=== PATIENT | male | born 1935 | race Caucasian/White ===

== ENCOUNTER 2019-01-28 20:27 | Inpatient (IN) | payer MEDICARE, OTHER ==
[2019-01-28] MEDS ORDERED: VITAMIN B-121000 MCG PO (20:40)
[2019-01-28] MEDS ORDERED: CATAPRES0.1 MG PO (20:40)
[2019-01-28] MEDS ORDERED: NORVASC5 MG PO (20:40)
[2019-01-28] MEDS ORDERED: ISOSORBIDE MONO30 M1 PO (20:42)
[2019-01-28] MEDS ORDERED: TOPROL XL25 MG PO (20:43)
[2019-01-28] MEDS ORDERED: MELATONIN 3 MG1 TAB PO (20:43)
[2019-01-28] MEDS ORDERED: PLAVIX75 MG PO (20:44)
[2019-01-28] MEDS ORDERED: SEROQUEL25 MG PO (20:44)
[2019-01-28] MEDS ORDERED: SODIUM BICARBO650 MG PO (20:44)
[2019-01-28] MEDS ORDERED: NITROSTAT0.4 MG SL (20:44)
[2019-01-28] MEDS ORDERED: TUMS X-STR300 MG PO (20:45)
[2019-01-28 21:16] LABS: BASOPHILS 0.1 % (0-2); EOSINOPHILS 0.1 % (0-7); HEMATOCRIT 34.3 % (42.0-54.0); IMMATURE GRANULOCYTES 0.5 % (0-5); LYMPHOCYTES 6.5 % (15-50); MCH 31.8 pg (26.0-34.0); MCHC 32.1 g/dL (31.0-37.0); MCV 99.1 fL (80.0-100.0); MEAN PLATELET VOLUME 11.3 fL (7.4-10.4); MONOCYTES 6.8 % (2-11); RBC 3.46 10x6/uL (4.20-6.10); RDW 15.6 % (11.5-14.5); WBC 9.4 10x3/uL (4.8-10.8)
[2019-01-28 21:18] LABS: PLATELET COUNT 196 10x3/uL (130-400)
[2019-01-28 21:23] LABS: APTT 31.1 SECONDS (22.8-39.4); INR 1.24 (0.85-1.17)
[2019-01-28 21:30] VITALS: BP 108/65
--- NOTE | 2019-01-28 21:35 | NUR ---
PT'S BED LINENS CHANGED AND [facility] PROVIDED NEW CLEAN, DRY BREIF AND GOWN PUT ON PT.
[2019-01-28 21:39] LABS: ALBUMIN 2.8 g/dL (3.4-5.0); ALKALINE PHOSPHATASE 66 U/L (46-116); ALT (SGPT) 23 U/L (10-68); BILIRUBIN - TOTAL 0.47 mg/dL (0.2-1.3); CALCIUM 8.7 mg/dL (8.5-10.1); CARBON DIOXIDE 15.1 mmol/L (21.0-32.0); CHLORIDE - SERUM 112 mmol/L (98-107); CREATININE - SERUM 10.7 mg/dL (0.6-1.3); GLUCOSE 167 mg/dL (74-106); PROTEIN - SERUM 6.8 g/dL (6.4-8.2); SODIUM 143 mmol/L (136-145); eGFR NON AFRICAN AMERICAN 5 mL/min (90-120)
[2019-01-28 21:40] LABS: CALC OSMOLALITY 337 mosm/kg (275-300); UREA NITROGEN 151 mg/dL (7-18)
[2019-01-28 21:44] LABS: CREATINE KINASE 151 UL (21-232)
[2019-01-28 21:48] LABS: TROPONIN-I < 0.017 ng/mL (0.000-0.060)
[2019-01-28 22:00] LABS: APPEARANCE TURBID (CLEAR); BILIRUBIN NEGATIVE (NEGATIVE); COLOR YELLOW (YELLOW); GLUCOSE NEGATIVE (NEGATIVE); KETONE NEGATIVE (NEGATIVE); NITRITE NEGATIVE (NEGATIVE); PROTEIN 1+ mg/dL (NEGATIVE); UROBILINOGEN NORMAL (NORMAL)
[2019-01-28 22:02] LABS: BACTERIA MANY /hpf (NONE SEEN); MUCUS >1+ /lpf (NONE SEEN); RED CELLS - URINE 0-5 /hpf (0-5); WHITE CELLS - URINE >50 /hpf (0-5)
[2019-01-28 22:15] VITALS: BP 109/70
--- NOTE | 2019-01-28 22:32 | NUR ---
PLAN OF CARE DISCUSSED WITH PT'S AT BEDSIDE, VERBALIZES UNDERSTANDING, DENIES ANY COMPLAINTS OR NEEDS AT THIS TIME. PT RESTING IN BED, RR EVEN AND UNLABORED, VSS, NO DISTRESS NOTED. WILL CONTINUE TO MONITOR.
[2019-01-29] MEDS ORDERED: REVATIO20 MG (00:10)
[2019-01-29] MEDS ORDERED: CATAPRES0.1 MG PO (00:12)
[2019-01-29] MEDS ORDERED: MELATONIN 3 MG1 TAB PO (00:14)
[2019-01-29] MEDS ORDERED: TUMS X-STR300 MG PO (00:22)
[2019-01-29] MEDS ORDERED: VITAMIN B-121000 MCG IM (00:26)
[2019-01-29] MEDS ORDERED: LOPRESSOR25 MG PO (00:28)
[2019-01-29 00:30] VITALS: BP 114/60
[2019-01-29 00:34] VITALS: BP 114/60; BMI 21.1
--- NOTE | 2019-01-29 00:58 | NUR ---
RECIEVED REPORT FROM DENISE WOLFE IN ER AT 2311. ARRIVED TO FLOOR ON STRETCHER AT 2319. ASSESSMENT COMPLETED. SPOUSE AT BEDSIDE. POOR HISTORIAN . DOES NOT SPEAK. SPOUSE STATED THAT HE SPOKE EARLIER TODAY. BUT, HAS'NT SPOKE SINCE HE'S BEEN HERE. PT KEEPS EYES CLOSED MOST OF THE TIME. PULLED IV OUT. WILL RESTART. NO S/S OF DISTRESS OBSERVED.
[2019-01-29 04:30] VITALS: BP 98/50
[2019-01-29 05:49] LABS: BASOPHILS 0.1 % (0-2); EOSINOPHILS 0.8 % (0-7); HEMATOCRIT 29.9 % (42.0-54.0); HEMOGLOBIN 9.8 g/dL (13.5-17.5); IMMATURE GRANULOCYTES 0.4 % (0-5); MCH 31.6 pg (26.0-34.0); MCHC 32.8 g/dL (31.0-37.0); MEAN PLATELET VOLUME 11.6 fL (7.4-10.4); MONOCYTES 10.5 % (2-11); NEUTROPHILS 81.2 % (40-80); PLATELET COUNT 166 10x3/uL (130-400); RDW 15.5 % (11.5-14.5); WBC 7.8 10x3/uL (4.8-10.8)
[2019-01-29 05:51] LABS: MCV 96.5 fL (80.0-100.0)
[2019-01-29 06:09] LABS: ALBUMIN 2.4 g/dL (3.4-5.0); BILIRUBIN - TOTAL 0.4 mg/dL (0.2-1.3); CALCIUM 8.5 mg/dL (8.5-10.1); CARBON DIOXIDE 14.8 mmol/L (21.0-32.0); CREATININE - SERUM 10.3 mg/dL (0.6-1.3)
[2019-01-29 06:19] LABS: POTASSIUM - SERUM 4.8 mmol/L (3.5-5.1)
--- NOTE | 2019-01-29 07:25 | NUR ---
PT IS ASLEEP SNORING, AT BEDSIDE. PT DID NOT WAKE I TALKED TO HIS SO I DID NOT FURTHER DISTURB HIM AT THIS TIME. STATES SHE WILL HAVE TO LEAVE SOON TO GO TAKE CARE OF HER DOGS AT HOME. STATES SHE WILL BE BACK IN A WHILE AND WOULD LIKE TO SEE THE DRFlavia TOLD HER I WAS NOT ABLE TO GIVE A GOOD A GUESS AT THIS TIME TO WHEN THEY WOULD ROUND. CL IN REACH, SRX3, BED ALARM OFF AT THIS TIME, WILL TURN BACK ON WHEN LEAVES.
[2019-01-29 09:33] VITALS: BP 99/55
[2019-01-29 11:56] VITALS: BMI 21.1
[2019-01-29 12:12] LABS: % SATURATION 24 % (15-55); IRON 40 ug/dl (35-150); TOTAL IRON BIND CAPACITY 166 ug/dl (260-445); UNSAT IRON BIND CAPACITY 126 ug/dl (150-375)
[2019-01-29 13:00] VITALS: BP 124/66
--- NOTE | 2019-01-29 13:43 | NUR ---
I have reviewed this patient and I concur with the Shift Assessment completed by the Licensed Practical Nurse today this shift.
[2019-01-29 15:30] VITALS: BP 115/60
--- NOTE | 2019-01-29 15:42 | NUR ---
PT CONTINUOUSLY BENDS ARM IN WHICH I/V IS PLACED IN THE AV. PLACED ARM BOARD AND PT AND WRAPPED WITH KERLEX. PULSE PRESENT. WILL CONTINUE TO CHECK. NO
--- NOTE | 2019-01-29 16:31 | NUR ---
PTS IS BACK, SPOKE TO HER ABOUT HER . STATES HE IS A DNR. SHE WOULD LIKE TO SPEAK WITH GABI FROM [facility] TOMORROW. DNR VERRIFIED WITH CIRILO RECIO, SIGNED, DR. ESPINAL TO SIGN TOMORROW.
--- NOTE | 2019-01-29 16:47 | NUR ---
PT REFUSED SCDS
--- NOTE | 2019-01-29 18:27 | NUR ---
PT LING WITH RIGHT SIDE PROPPED UP ON PILLOWS. UROSTOMY/ELMORE IN A DRAINING POSITION. ELMORE EMPTIED (500 OUT). AT BEDSIDE STATES THAT WHEN WE FEED HIM TO PUT THE BITE IN FRONT OF HIS MOUTH AND TELL HIM TO OPEN UP. PASSED THIS ON TO TECH AND TIM PASS TO MAKE UP OPERATOR NURSE. STATES SHE'LL BE STAYING UNTIL ATOUND 1930. STATES THAT SHE WOULD LIKE HIM TO GO BACK TO [facility]. PLANS TO SPEAK TO GABI WITH HOSPICE TOMORROW ABOUT HOW TO ORGINIZE IT ALL. AT THIS TIME, CL IN REACH, SRX2, BED ALARM OFF ( AT BEDSIDE).
--- NOTE | 2019-01-29 18:29 | NUR ---
I have reviewed this patient and I concur with the Shift Assessment completed by the Licensed Practical Nurse today this shift.
--- NOTE | 2019-01-29 19:39 | NUR ---
EVENING ROUNDS COMPLETED. REPORT RECEIVED. PT LYING IN BED WITH EYES CLOSED, RR EVEN AND UNLABORED. BED IN LOW POSITION. NO S/S OF DISTRESS NOTED. MARTIN ALARM TURNED ON. CALL LIGHT IN REACH. WILL CTM.
[2019-01-30 00:30] VITALS: BP 141/69
--- NOTE | 2019-01-30 03:36 | NUR ---
I have reviewed this patient and I concur with the Shift Assessment completed by the Licensed Practical Nurse today this shift.
[2019-01-30 05:18] LABS: BASOPHILS 0.1 % (0-2); HEMATOCRIT 30.1 % (42.0-54.0); HEMOGLOBIN 9.8 g/dL (13.5-17.5); IMMATURE GRANULOCYTES 0.7 % (0-5); MCH 31.5 pg (26.0-34.0); MCHC 32.6 g/dL (31.0-37.0); MCV 96.8 fL (80.0-100.0); MEAN PLATELET VOLUME 10.9 fL (7.4-10.4); MONOCYTES 7.7 % (2-11); NEUTROPHILS 81.5 % (40-80); PLATELET COUNT 163 10x3/uL (130-400); RBC 3.11 10x6/uL (4.20-6.10); RDW 15.1 % (11.5-14.5); WBC 7.4 10x3/uL (4.8-10.8)
[2019-01-30 05:30] VITALS: BP 139/58
[2019-01-30 05:34] LABS: ANION GAP 18.7 mmol/L (8-16); CALCIUM 8.4 mg/dL (8.5-10.1); CARBON DIOXIDE 17.1 mmol/L (21.0-32.0); CREATININE - SERUM 9.3 mg/dL (0.6-1.3); POTASSIUM - SERUM 4.8 mmol/L (3.5-5.1)
--- NOTE | 2019-01-30 07:15 | NUR ---
PT RESTING, AWAKE AND CONFUSED. MUMBLING UNINTELLAGABLE SENTANCES. ARM WRAPPED IN SOFT AADM WRAP, PT STILL BENDING HIS ARM CAUSING I/V ALARM TO GO OFF REPEATEDLY. DOES NOT APPEAR TO BE IN ANY ACUTE DISTRESS OR PAIN AT THIS TIME. CL IN REACH, SRX2, BED ALARM ON.
[2019-01-30 08:14] VITALS: BP 144/60
--- NOTE | 2019-01-30 09:48 | MORECARE ---
CASE MANAGEMENT DISCHARGE SUMMARY PATIENT: BOBBY PERSAUD UNIT: [id number] ADM DATE: 01/28/19 AGE: 83 : 36 SEX: M ROOM/BED: D.2106 AUTHOR: WOLFDOC PHYSICIAN: REFERRING PHYSICIAN: SHIRLEY ESPINAL MD DATE OF SERVICE: 01/30/19 Discharge Plan Patient Name: BOBBY PERSAUD [facility] [facility] 1935 Planned Disposition: [facility] w Plan Readm Anticipated Discharge Date: Discharge Date: Expected LOS: Initial Reviewer: [email or web address] Initial Review Date: 01/30/2019 Generated: 01/30/19 10:48 am Comments DCP- Discharge Planning Updated by [email or web address]: Rosalinda Hammer on 01/30/19 8:[address] Patient Name: BOBBY PERSAUD Admission Status: ER Accout number: [id number] Admission Date: 01-28-2019 : 1935 Admission Diagnosis: Attending: SHIRLEY ESPINAL Current LOS: 2 Anticipated DC Date: Planned Disposition: [facility] w Plan Readm Primary Insurance: MEDICARE A & B Discharge Planning Comments:CM met with patient to complete initial dc planning assessment. CM educated patient on the CM role and verbal consent given by patient to complete assessment. CM verified patient's address, phone number, and emergency contact phone numbers. PT STATES PT WILL DC BACK TO [facility]. SHE IS CURRENTLY CONSIDERING GOING BACK WITH [facility] VS LTC BED. SHE WILL LETTING CM KNOW WHAT THEY WANT . CM WILL CONTINUE TO FOLLOW Cnc Programmer: Rosalinda Hammer DCPIA - Discharge Planning Initial Assessment Updated by [email or web address]: Rosalinda Hammer on 01/30/19 9:45 am * Is the patient Alert and Oriented? No * How many steps to enter\exit or inside your home? * PCP TASHI ELI DR * Pharmacy [facility] * Preadmission Environment [facility] * Facility Name [facility] * ADLs Partial Dependent * Verbal permission to speak to the caregivers and representatives has been obtained from the patient. N/A * Additional services required to return to the preadmission environment? No * Can the patient safely return to the preadmission environment? Yes * Has this patient been hospitalized within the prior 30 days at any hospital? No Patient Name: BOBBY PERSAUD Page 98043 at 0948 All edits/amendments must be made on the electronic document DICTATION DATE: 01/30/19946 BELLSTAFF: LOUIS 01/30/19946 RPT#: [id number] DC DATE: STATUS: ADM IN [facility] [address] [place] [address] END OF REPORT
--- NOTE | 2019-01-30 11:19 | NUR ---
I have reviewed this patient and I concur with the Shift Assessment completed by the Licensed Practical Nurse today this shift.
[2019-01-30 13:06] VITALS: BP 122/78
--- NOTE | 2019-01-30 13:27 | MORECARE ---
CASE MANAGEMENT DISCHARGE SUMMARY PATIENT: BOBBY PERSAUD UNIT: [id number] ADM DATE: 01/28/19 AGE: 83 : 36 SEX: M ROOM/BED: D.2106 AUTHOR: WOLFDOC PHYSICIAN: REFERRING PHYSICIAN: SHIRLEY ESPINAL MD DATE OF SERVICE: 01/30/19 Discharge Plan Patient Name: BOBBY PERSAUD [facility] [facility] 1935 Planned Disposition: [facility] w Plan Readm Anticipated Discharge Date: Discharge Date: Expected LOS: Initial Reviewer: [email or web address] Initial Review Date: 01/30/2019 Generated: 01/30/19 2:26 pm Comments DCP- Discharge Planning Updated by [id number]: Rosalinda aHmmer on 01/30/19 12:[address] Patient Name: BOBBY PERSAUD Admission Status: ER Accout number: [id number] Admission Date: 01-28-2019 : 1935 Admission Diagnosis: Attending: SHIRLEY ESPINAL Current LOS: 2 Anticipated DC Date: Planned Disposition: [facility] w Plan Readm Primary Insurance: MEDICARE A & B Discharge Planning Comments: [facility] notified of evaluation. Egrman from [facility] is coming up to talk to . Internal Control Manager: Rosalinda Hammer DCP- Discharge Planning Updated by [id number]: Rosalinda Hammer on 01/30/19 8:[address] Patient Name: BOBBY PERSAUD Admission Status: ER Accout number: [id number] Admission Date: 01-28-2019 : 1935 Admission Diagnosis: Attending: SHIRLEY ESPINAL Current LOS: 2 Anticipated DC Date: Planned Disposition: [facility] w Plan Readm Primary Insurance: MEDICARE A & B Discharge Planning Comments:CM met with patient to complete initial dc planning assessment. CM educated patient on the CM role and verbal consent given by patient to complete assessment. CM verified patient's address, phone number, and emergency contact phone numbers. PT STATES PT WILL DC BACK TO [facility]. SHE IS CURRENTLY CONSIDERING GOING BACK WITH [facility] VS LTC BED. SHE WILL LETTING CM KNOW WHAT THEY WANT . CM WILL CONTINUE TO FOLLOW Internal Control Manager: Rosalnida Hammer DCPIA - Discharge Planning Initial Assessment Updated by [email or web address]: Rosalinda Hammer on 01/30/19 9:45 am * Is the patient Alert and Oriented? No * How many steps to enter\exit or inside your home? * PCP TASHI ELI DR * [facility] [place] * Preadmission Environment [facility] * Facility Name [facility] * ADLs Partial Dependent * Verbal permission to speak to the caregivers and representatives has been obtained from the patient. N/A * Additional services required to return to the preadmission environment? No * Can the patient safely return to the preadmission environment? Yes * Has this patient been hospitalized within the prior 30 days at any hospital? No Last DP export: 01/30/19 8:48 am Patient Name: BOBBY PERSAUD Page [phone] at 1327 All edits/amendments must be made on the electronic document DICTATION DATE: 01/30/191325 PROFESSOR SCULPTURE: LOUIS 01/30/19 1326 RPT#: [id number] DC DATE: STATUS: ADM IN [facility] [address] [place] [address] END OF REPORT
--- NOTE | 2019-01-30 18:16 | NUR ---
PT IS LYING IN BED, COVERSING WITH US BUT IN INNAPROPRIATE SENTANCES FOR THE CONVERSATIONS. CLEARLY STILL CONFUSED. IS GONE BUT STATES SHE WILL BE BACK TOMORROW FOR THE HOSPICE CONSULT, STATES SHE ORDERED CREAM OF WHEAT FOR HIS BREAKFAST TOMRROW AND REQUESTS KINDLY THAT THE NURSE/TECH MAKE IT SWEET FOR HIM (BUTTER AND SUGAR) AND ASSIST HIM EATING, SHE STATES IT IS HIS FAVOURITE. ASSISTED TECH IN CHANGING AND REPOSITIONING PATIENT. NO B.M BUT WE DID PREFORM [employer]. CHANGED THE ELMORE BAG ATTACHED TO THE UROSTOMY THE OLD ONE WAS CLOGGED WITH THICK URINE. PT DOES NOT APPEAR TO BE IN ANY DISTRESS, BREATHS EVEN/REGULAR, NO GRUNTS OR VOICED COMPLAINTS OF PAIN. CL IN REACH, SRX2, BED ALARM ON
[2019-01-30 20:00] VITALS: BP 147/79
--- NOTE | 2019-01-30 20:05 | NUR ---
PT RESTING IN BED ALERT BUT CONFUSED. RR EVEN AND UNLABORED. VITALS STABLE. BED LOW, ALARM IN PLACE, CALL LIGHT WITHIN REACH. WILL CONTINUE TO MONITOR.
--- NOTE | 2019-01-30 21:28 | NUR ---
PT RIPPED OUT 22G IV IN LEFT AC WITH CATHETER TIP IN PLACE. NO SWELLIN NOTED. BED LOW, ALARM HEMODIALYSIS CHARGE NURSE LIGHT WITHIN REACH. WILL CONTINUE TO MONITOR.
--- NOTE | 2019-01-30 22:05 | NUR ---
ESTABLISHED 22G IV IN PT'S RIGHT UPPER ARM. ABX RUNNING AT THIS TIME. BED ALARM ON, SIDE RAILS UP X2, BED LOW, CALL LIGHT WITHIN REACH. WILL CONTINUE TO MONITOR.
--- NOTE | 2019-01-30 23:06 | NUR ---
PT HAVING IRETRACTABLE HICCUPS SINCE I ARRIVED AT 1900. MARIZOL PANDYA CONSULTED. ONE TIME ORDER FOR COMPAZINE 25MG. WILL CONTINUE TO MONITOR.
--- NOTE | 2019-01-31 00:17 | NUR ---
PT RECIEVED FROM [facility]. PT ALERT AND ORIENTED AND COMPLAINS OF PAIN 8/10 IN FRONT AND BACK RIB AREA. C/O OF PAIN IN SHOULDER. PT ARRIVED VIA STRECHER WITH DAD AT BEDSIDE. PT STATES THAT HE HASN'T SLEPT IN 4 DAys DUE TO PAIN WHEN BREATHING OR MOVING.PT UP ADLIB. BED LOW CALL LIGHT WITHIN REACH, WILL CONTINUE TO MONITOR.
[2019-01-31 00:27] VITALS: BP 172/75
--- NOTE | 2019-01-31 02:22 | NUR ---
ENCOURGED PT TO EAT A VANILLA PUDDING. TOLERATED WELL. PT IS A FEEDER
--- NOTE | 2019-01-31 03:42 | NUR ---
PT IS ALERT BUT CONFUSED X3. PT PULLED OUT 22G IV CATHETER TIP IN PLACE. THIS IS THE THIRD IV THAT HAS BEEN DC'D BY PT. PT DENIES ANY PAIN AT THIS TIME. SIDE RAILS UP X3,BED ALARM IN PLACE,BED LOW, CALL LIGHT WITHIN REACH. WILL CONTINUE TO MONITOR.
--- NOTE | 2019-01-31 04:00 | NUR ---
I have reviewed this patient and I concur with the Shift Assessment completed by the Licensed Practical Nurse today this shift.
[2019-01-31 04:25] VITALS: BP 139/68
[2019-01-31 04:45] LABS: BASOPHILS 0.3 % (0-2); EOSINOPHILS 2.8 % (0-7); HEMOGLOBIN 9.9 g/dL (13.5-17.5); LYMPHOCYTES 9.4 % (15-50); MCH 31.5 pg (26.0-34.0); MCV 95.5 fL (80.0-100.0); MEAN PLATELET VOLUME 10.7 fL (7.4-10.4); MONOCYTES 7.1 % (2-11); NEUTROPHILS 79.4 % (40-80); PLATELET COUNT 175 10x3/uL (130-400); RBC 3.14 10x6/uL (4.20-6.10); RDW 14.8 % (11.5-14.5)
[2019-01-31 04:53] LABS: CREATININE - SERUM 8.2 mg/dL (0.6-1.3); POTASSIUM - SERUM 4.3 mmol/L (3.5-5.1)
[2019-01-31 04:54] LABS: CARBON DIOXIDE 25.3 mmol/L (21.0-32.0)
--- NOTE | 2019-01-31 05:34 | NUR ---
UNABLE TO ACCESS IV SITE. PT REFUSED IV. WILL REPORT TO ONCOMING NURSE TO DISCUSS WITH MD. WILL CONTINUE TO ASSESS.
[2019-01-31 07:40] VITALS: BP 138/68
--- NOTE | 2019-01-31 08:46 | MORECARE ---
CASE MANAGEMENT DISCHARGE SUMMARY PATIENT: BOBBY PERSAUD UNIT: [id number] ADM DATE: 01/28/19 AGE: 83 : 36 SEX: M ROOM/BED: D.2106 AUTHOR: JASON BLOOM PHYSICIAN: REFERRING PHYSICIAN: SHIRLEY ESPINAL MD DATE OF SERVICE: 01/31/19 Discharge Plan Patient Name: BOBBY PERSAUD [facility] [facility] 1935 Planned Disposition: [facility] w Plan Readm Anticipated Discharge Date: Discharge Date: Expected LOS: Initial Reviewer: [email or web address] Initial Review Date: 01/30/2019 Generated: 01/31/19 9:46 am Comments DCP- Discharge Planning Updated by [email or web address]: Rosalinda Hammer on 01/30/19 12:[address] Patient Name: BOBBY PERSAUD Admission Status: ER Accout number: [id number] Admission Date: 01-28-2019 : 1935 Admission Diagnosis: Attending: SHIRLEY ESPINAL Current LOS: 2 Anticipated DC Date: Planned Disposition: [facility] w Plan Readm Primary Insurance: MEDICARE A & B Discharge Planning Comments: [facility] notified of evaluation. German from [facility] is coming up to talk to . Field Pipe Lines Supervisor: Rosalinda Hammer DCP- Discharge Planning Updated by [id number]: Rosalinda Hammer on 01/30/19 8:[address] Patient Name: BOBBY PERSAUD Admission Status: ER Accout number: [id number] Admission Date: 01-28-2019 : 1935 Admission Diagnosis: Attending: SHIRLEY ESPINAL Current LOS: 2 Anticipated DC Date: Planned Disposition: [facility] w Plan Readm Primary Insurance: MEDICARE A & B Discharge Planning Comments:CM met with patient to complete initial dc planning assessment. CM educated patient on the CM role and verbal consent given by patient to complete assessment. CM verified patient's address, phone number, and emergency contact phone numbers. PT STATES PT WILL DC BACK TO [facility]. SHE IS CURRENTLY CONSIDERING GOING BACK WITH [facility] VS LTC BED. SHE WILL LETTING CM KNOW WHAT THEY WANT . CM WILL CONTINUE TO FOLLOW Field Pipe Lines Supervisor: Rosalinda Hammer DCPIA - Discharge Planning Initial Assessment Updated by [email or web address]: Rosalinda Hammer on 01/30/19 9:45 am * Is the patient Alert and Oriented? No * How many steps to enter\exit or inside your home? * PCP TASHI ELI DR * Pharmacy [facility] * Preadmission Environment Intermediate Detention * Facility Name [facility] * ADLs Partial Dependent * Verbal permission to speak to the caregivers and representatives has been obtained from the patient. N/A * Additional services required to return to the preadmission environment? No * Can the patient safely return to the preadmission environment? Yes * Has this patient been hospitalized within the prior 30 days at any hospital? No External Providers External Provider: [facility] Next Contact Date: 01/31/2019 Service Request Date: Service Type: Resolution: Reviewer: Comments: Coverage Notice Reviewer: [email or web address] Hammer Notice Issued Date-Time: 01/30/2019 13:00 Notice Type: Patient Choice Letter Notice Delivered To: Family Member Relationship to Patient: Spouse Marketing Communications Assistant Name: Delivery Method: HAND - Hand Delivered Pau Days: Prior Verbal Notification: Recipient Understood Notice: Yes Recipient Signature: Yes Med Rec Note Co-signed by Attending: Coverage Notice Comment: Last DP export: 01/30/19 12:27 pm Patient Name: BOBBY PERSAUD Page 54716 at 0846 All edits/amendments must be made on the electronic document DICTATION DATE: 01/31/19845 DIRECTOR OF CUSTOMER SERVICE: LOUIS 01/31/19845 RPT#: [id number] DC DATE: STATUS: ADM IN [facility] [address] [place] [address] END OF REPORT
--- NOTE | 2019-01-31 08:54 | MORECARE ---
CASE MANAGEMENT DISCHARGE SUMMARY PATIENT: BOBBY PERSAUD UNIT: [id number] ADM DATE: 01/28/19 AGE: 83 : 36 SEX: M ROOM/BED: D.2106 AUTHOR: JASON BLOOM PHYSICIAN: REFERRING PHYSICIAN: SHIRLEY ESPINAL MD DATE OF SERVICE: 01/31/19 Discharge Plan Patient Name: BOBBY PERSAUD [facility] [facility] 1935 Planned Disposition: Nursing Facility [facility] Anticipated Discharge Date: Discharge Date: Expected LOS: Initial Reviewer: [email or web address] Initial Review Date: 01/30/2019 Generated: 01/31/19 9:54 am Comments DCP- Discharge Planning Updated by [id number]: Rosalinda Hammer on 01/30/19 12:[address] Patient Name: BOBBY PERSAUD Admission Status: ER Accout number: [id number] Admission Date: 01-28-2019 : 1935 Admission Diagnosis: Attending: SHIRLEY ESPINAL Current LOS: 2 Anticipated DC Date: Planned Disposition: [facility] Facility w Plan Readm Primary Insurance: MEDICARE A & B Discharge Planning Comments: [facility] notified of evaluation. German from [facility] is coming up to talk to . Drafter Civil (Cad): Rosalinda Hammer DCP- Discharge Planning Updated by [id number]: Rosalinda Hammer on 01/30/19 8:[address] Patient Name: BOBBY PERSAUD Admission Status: ER Accout number: [id number] Admission Date: 01-28-2019 : 1935 Admission Diagnosis: Attending: SHIRLEY ESPINAL Current LOS: 2 Anticipated DC Date: Planned Disposition: [facility] Facility w Plan Readm Primary Insurance: MEDICARE A & B Discharge Planning Comments:CM met with patient to complete initial dc planning assessment. CM educated patient on the CM role and verbal consent given by patient to complete assessment. CM verified patient's address, phone number, and emergency contact phone numbers. PT STATES PT WILL DC BACK TO [facility]. SHE IS CURRENTLY CONSIDERING GOING BACK WITH [facility] VS LTC BED. SHE WILL LETTING CM KNOW WHAT THEY WANT . CM WILL CONTINUE TO FOLLOW Drafter Civil (Cad): Rosalinda Hammer DCPIA - Discharge Planning Initial Assessment Updated by [email or web address]: Rosalinda Hammer on 01/30/19 9:45 am * Is the patient Alert and Oriented? No * How many steps to enter\exit or inside your home? * PCP TASHI ELI DR * [facility] [place] * Preadmission Environment [facility] * Facility Name [facility] * ADLs Partial Dependent * Verbal permission to speak to the caregivers and representatives has been obtained from the patient. N/A * Additional services required to return to the preadmission environment? No * Can the patient safely return to the preadmission environment? Yes * Has this patient been hospitalized within the prior 30 days at any hospital? No Coverage Notice Reviewer: [id number] - Rosalinda Gavinman Notice Issued Date-Time: 01/30/2019 13:00 Notice Type: Patient Choice Letter Notice Delivered To: Family Member Relationship to Patient: Spouse Residential Recycle Driver Name: Delivery Method: HAND - Hand Delivered Pau Days: Prior Verbal Notification: Recipient Understood Notice: Yes Recipient Signature: Yes Med Rec Note Co-signed by Attending: Coverage Notice Comment: Last DP export: 01/31/19 7:46 am Patient Name: BOBBY PERSAUD Page 41084 at 0854 All edits/amendments must be made on the electronic document DICTATION DATE: 01/31/1953 BUILDING TRADES INSTRUCTOR: LOUIS 01/31/1952 RPT#: [id number] DC DATE: STATUS: ADM IN [facility] [address] [place] [address] END OF REPORT
--- NOTE | 2019-01-31 09:02 | MORECARE ---
CASE MANAGEMENT DISCHARGE SUMMARY PATIENT: BOBBY PERSAUD UNIT: [id number] ADM DATE: 01/28/19 AGE: 83 : 36 SEX: M ROOM/BED: D.2106 AUTHOR: WOLFDOC PHYSICIAN: REFERRING PHYSICIAN: SHIRLEY ESPINAL MD DATE OF SERVICE: 01/31/19 Discharge Plan Patient Name: BOBBY PERSAUD Facility: [facility]:[place] : 1935 Planned Disposition: Nursing Facility [facility] Cert Anticipated Discharge Date: Discharge Date: Expected LOS: Initial Reviewer: [email or web address] Initial Review Date: 01/30/2019 Generated: 01/31/19 10:02 am Comments DCP- Discharge Planning Updated by [email or web address]: Jordan Saeed on 01/31/19 7:[address] Patient Name: BOBBY PERSAUD Encounter No: [id number] : 1935 Primary Insurance: MEDICARE A & B Anticipated DC Date: Planned Disposition: Nursing Facility [facility] Cert External Planned Provider: [place], [facility] TERM CARE MEDICAID BED DCP follow-up note: CM FAXED HOSPITAL UPDATE TO [facility], . CM WAITING ON FAMILY DECISION REGARDING HOSPICE AT ALF; EITHER WAY, PT'S PLAN IS TO RETURN TO LONGTERM CARE WITH OR WITHOUT HOSPICE.. FOR DISCHARGE BACK TO [facility], FAX DISCHARGE INFORMATION TO [facility] AT [phone]; NURSE REPORT TO BE CALLED TO [facility] AT [phone]. TRANSPORT BACK TO FACILITY VIA AMBULANCE. GONZALEZ Kaur DCP- Discharge Planning Updated by [email or web address]: Rosalinda Hammer on 01/30/19 12:[address] Patient Name: BOBBY PERSAUD Admission Status: ER Accout number: [id number] Admission Date: 01-28-2019 : 1935 Admission Diagnosis: Attending: SHIRLEY ESPINAL Current LOS: 2 Anticipated DC Date: Planned Disposition: [facility] w Plan Readm Primary Insurance: MEDICARE A & B Discharge Planning Comments: [facility] notified of evaluation. German from [facility] is coming up to talk to . Butcher'S Assistant: Rosalinda Hammer DCP- Discharge Planning Updated by [id number]: Rosalinda Hammer on 01/30/19 8:[address] Patient Name: BOBBY PERSAUD Admission Status: ER Accout number: [id number] Admission Date: 01-28-2019 : 1935 Admission Diagnosis: Attending: SHIRLEY ESPINAL Current LOS: 2 Anticipated DC Date: Planned Disposition: [facility] Facility w Plan Readm Primary Insurance: MEDICARE A & B Discharge Planning Comments:CM met with patient to complete initial dc planning assessment. CM educated patient on the CM role and verbal consent given by patient to complete assessment. CM verified patient's address, phone number, and emergency contact phone numbers. PT STATES PT WILL DC BACK TO [facility]. SHE IS CURRENTLY CONSIDERING GOING BACK WITH [facility] VS LTC BED. SHE WILL LETTING CM KNOW WHAT THEY WANT . CM WILL CONTINUE TO FOLLOW Butcher'S Assistant: Rosalindasun Gavinman DCPIA - Discharge Planning Initial Assessment Updated by [email or web address]: Rosalinda Gavinman on 01/30/19 9:45 am * Is the patient Alert and Oriented? No * How many steps to enter\exit or inside your home? * PCP [facility] * Pharmacy [facility] * Preadmission Environment Half-Way Residential * Facility Name [facility] * ADLs Partial Dependent * Verbal permission to speak to the caregivers and representatives has been obtained from the patient. N/A * Additional services required to return to the preadmission environment? No * Can the patient safely return to the preadmission environment? Yes * Has this patient been hospitalized within the prior 30 days at any hospital? No Coverage Notice Reviewer: [id number] - Rosalinda Hammer Notice Issued Date-Time: 01/30/2019 13:00 Notice Type: Patient Choice Letter Notice Delivered To: Family Member Relationship to Patient: Spouse Industrial Engineering Analyst Name: Delivery Method: HAND - Hand Delivered Pau Days: Prior Verbal Notification: Recipient Understood Notice: Yes Recipient Signature: Yes Med Rec Note Co-signed by Attending: Coverage Notice Comment: Last DP export: 01/31/19 7:54 am Patient Name: BOBBY PERSAUD Page [phone] at 0902 All edits/amendments must be made on the electronic document DICTATION DATE: 01/31/19900 SUPERVISOR LIQUID YEAST: LOUIS 01/31/19900 RPT#: [id number] DC DATE: STATUS: ADM IN [facility] [address] [place] [place] [address] END OF REPORT
[2019-01-31 11:45] VITALS: BP 131/64
--- NOTE | 2019-01-31 13:56 | MORECARE ---
CASE MANAGEMENT DISCHARGE SUMMARY PATIENT: BOBBY PERSAUD UNIT: [id number] ADM DATE: 01/28/19 AGE: 83 : 36 SEX: M ROOM/BED: D.2106 AUTHOR: WOLFDOC PHYSICIAN: REFERRING PHYSICIAN: SHIRLEY ESPINAL MD DATE OF SERVICE: 01/31/19 Discharge Plan Patient Name: BOBBY PERSAUD Facility: [facility]:[place] : 1935 Planned Disposition: Nursing Facility [facility] Cert Anticipated Discharge Date: 01/31/19 Discharge Date: Expected LOS: 3 Initial Reviewer: [id number] Initial Review Date: 01/30/2019 Generated: 01/31/19 2:56 pm Comments DCP- Discharge Planning Updated by [id number]: Jordan Saeed on 01/31/19 7:[address] Patient Name: BOBBY PERSAUD Encounter No: [id number] : 1935 Primary Insurance: MEDICARE A & B Anticipated DC Date: Planned Disposition: Nursing Facility [facility] Cert External Planned Provider: [facility], LONG TERM CARE MEDICAID BED DCP follow-up note: CM FAXED HOSPITAL UPDATE TO [facility], . CM WAITING ON FAMILY DECISION REGARDING HOSPICE AT LONG TERM; EITHER WAY, PT'S PLAN IS TO RETURN TO CULINARY INTERN CARE WITH OR WITHOUT HOSPICE.. FOR DISCHARGE BACK TO [facility], FAX DISCHARGE INFORMATION TO [facility] AT [phone]; NURSE REPORT TO BE CALLED TO [facility] AT [phone]. TRANSPORT BACK TO FACILITY VIA AMBULANCE. GONZALEZ Kaur DCP- Discharge Planning Updated by [id number]: Rosalinda Hammer on 01/30/19 12:[address] Patient Name: BOBBY PERSAUD Admission Status: ER Accout number: [id number] Admission Date: 01-28-2019 : 1935 Admission Diagnosis: Attending: SHIRLEY ESPINAL Current LOS: 2 Anticipated DC Date: Planned Disposition: [facility] Facility w Plan Readm Primary Insurance: MEDICARE A & B Discharge Planning Comments: [facility] notified of evaluation. German from [facility] is coming up to talk to . Forest Products Gatherer: Rosalinda Hammer DCP- Discharge Planning Updated by [id number]: Rosalinda Hammer on 01/30/19 8:[address] Patient Name: BOBBY PERSAUD Admission Status: ER Accout number: [id number] Admission Date: 01-28-2019 : 1935 Admission Diagnosis: Attending: SHIRLEY ESPINAL Current LOS: 2 Anticipated DC Date: Planned Disposition: [facility] Facility w Plan Readm Primary Insurance: MEDICARE A & B Discharge Planning Comments:CM met with patient to complete initial dc planning assessment. CM educated patient on the CM role and verbal consent given by patient to complete assessment. CM verified patient's address, phone number, and emergency contact phone numbers. PT STATES PT WILL DC BACK TO [facility]. SHE IS CURRENTLY CONSIDERING GOING BACK WITH [facility] VS LTC BED. SHE WILL LETTING CM KNOW WHAT THEY WANT . CM WILL CONTINUE TO FOLLOW Forest Products Gatherer: Rosalinda Hammer DCPIA - Discharge Planning Initial Assessment Updated by [id number]: Rosalinda Hammer on 01/30/19 9:45 am * Is the patient Alert and Oriented? No * How many steps to enter\exit or inside your home? * PCP [facility] * Pharmacy [facility] * Preadmission Environment [facility] * Facility Name [facility] * ADLs Partial Dependent * Verbal permission to speak to the caregivers and representatives has been obtained from the patient. N/A * Additional services required to return to the preadmission environment? No * Can the patient safely return to the preadmission environment? Yes * Has this patient been hospitalized within the prior 30 days at any hospital? No Coverage Notice Reviewer: [id number] - Rosalinda Hammer Notice Issued Date-Time: 01/30/2019 13:00 Notice Type: Patient Choice Letter Notice Delivered To: Family Member Relationship to Patient: Spouse Administrative Services Assistant Name: Delivery Method: HAND - Hand Delivered Pau Days: Prior Verbal Notification: Recipient Understood Notice: Yes Recipient Signature: Yes Med Rec Note Co-signed by Attending: Coverage Notice Comment: Reviewer: [id number] - Jordan Saeed Notice Issued Date-Time: 01/31/2019 13:50 Notice Type: Patient Choice Letter Notice Delivered To: Family Member Relationship to Patient: Spouse Administrative Services Assistant Name: SANTOS PERSAUD Delivery Method: HAND - Hand Delivered Pau Days: Prior Verbal Notification: Recipient Understood Notice: Yes Recipient Signature: Yes Med Rec Note Co-signed by Attending: Coverage Notice Comment: TASHI José DP export: 01/31/19 8:02 am Patient Name: BOBBY PERSAUD Page 65112 at 1356 All edits/amendments must be made on the electronic document DICTATION DATE: 01/31/19 1351 ERECTION SHOP SUPERVISOR: [place] 01/31/19 1356 RPT#: [id number] DC DATE: STATUS: ADM IN [facility] [address] [place] [address] END OF REPORT
--- NOTE | 2019-01-31 14:05 | MORECARE ---
CASE MANAGEMENT DISCHARGE SUMMARY PATIENT: BOBBY PERSAUD UNIT: [id number] ADM DATE: 01/28/19 AGE: 83 : 36 SEX: M ROOM/BED: D.2106 AUTHOR: WOLF,DOC PHYSICIAN: REFERRING PHYSICIAN: SHIRLEY ESPINAL MD DATE OF SERVICE: 01/31/19 Discharge Plan Patient Name: BOBBY PERSAUD Facility: [facility]:[place] : 1935 Planned Disposition: Nursing Facility [facility] Cert Anticipated Discharge Date: 01/31/19 Discharge Date: Expected LOS: 3 Initial Reviewer: [id number] Initial Review Date: 01/30/2019 Generated: 01/31/19 3:05 pm Comments DCP- Discharge Planning Updated by [email or web address]: Jordan Saeed on 01/31/19 12:[address] Patient Name: BOBBY PERSAUD Encounter No: [id number] : 1935 Primary Insurance: MEDICARE A & B Anticipated DC Date: 01-31-2019 Planned Disposition: Nursing Facility [facility] Cert External Planned Provider: [facility], LONG TERM CARE MEDICAID BED DCP follow-up note: CM SPOKE TO PT'S IN ROOM; REPORTS PLAN FOR [facility] TO ADMIT PT AT THE INTERMEDIATE, [facility], WHERE PT HAS BEEN IN [facility] AND WILL RETURN THERE AT DISCHARGE. CHOICE LETTER SIGNED FOR [facility]. CM SPOKE TO GABI OF [facility], HOSPICE NURSE TO EVALUATE PT FOR INPATIENT REHAB AT 2PM TODAY TO SEE IF THERE HAVE BEEN ANY CHANGES; THEY ANTICIPATE PT RETURNING TO [facility] FOR HOSPICE ADMIT AT THE INTERMEDIATE. CM CALLED [facility], , SPOKE TO [place] WHO HAS MET WITH PT'S SPOUSE THIS MORNING, THEY PLAN TO ACCEPT PT BACK FOR [facility] AND ALL THEY NEED IS HOSPICE SELECTION AND PAPERWORK AT ADMISSION FROM HOSPICE. CM ADVISED PT IS MEETING WITH [facility] TODAY AT 2PM. [place] HAS RECEIVED UPDATE CM FAXED THIS MORNING. CM NOTIFIED MARIZOL ROSS. FOR DISCHARGE BACK TO [facility], FAX DISCHARGE INFORMATION TO [facility] AT [phone]; NURSE REPORT TO BE CALLED TO [facility] AT [phone]. PT TO TRANSPORT VIA AMBULANCE. Jordan Saeed, CASE MANAGEMENT DCP- Discharge Planning Updated by [id number]: Jordan Saeed on 01/31/19 7:[address] Patient Name: BOBBY PERSAUD Encounter No: [id number] : 1935 Primary Insurance: MEDICARE A & B Anticipated DC Date: Planned Disposition: Nursing Facility [facility] Cert External Planned Provider: [facility], LONG TERM CARE MEDICAID BED DCP follow-up note: CM FAXED HOSPITAL UPDATE TO [facility], . CM WAITING ON FAMILY DECISION REGARDING HOSPICE AT INTERMEDIATE; EITHER WAY, PT'S PLAN IS TO RETURN TO SHIPPING AND RECEIVING CLERK CARE WITH OR WITHOUT HOSPICE.. FOR DISCHARGE BACK TO [facility], FAX DISCHARGE INFORMATION TO [facility] AT [phone]; NURSE REPORT TO BE CALLED TO [facility] AT [phone]. TRANSPORT BACK TO FACILITY VIA AMBULANCE. GONZALEZ Kaur DCP- Discharge Planning Updated by [id number]: Rosalinda Hammer on 01/30/19 12:[address] Patient Name: BOBBY PERSAUD Admission Status: ER Accout number: [id number] Admission Date: 01-28-2019 : 1935 Admission Diagnosis: Attending: SHIRLEY ESPINAL Current LOS: 2 Anticipated DC Date: Planned Disposition: [facility] Facility w Plan Readm Primary Insurance: MEDICARE A & B Discharge Planning Comments: [facility] notified of evaluation. Gabi from [facility] is coming up to talk to . Information Director: Rosalinda Hammer DCP- Discharge Planning Updated by [id number]: Rosalinda Hammer on 01/30/19 8:[address] Patient Name: BOBBY PERSAUD Admission Status: ER Accout number: [id number] Admission Date: 01-28-2019 : 1935 Admission Diagnosis: Attending: SHIRLEY ESPINAL Current LOS: 2 Anticipated DC Date: Planned Disposition: [facility] Facility w Plan Readm Primary Insurance: MEDICARE A & B Discharge Planning Comments:CM met with patient to complete initial dc planning assessment. CM educated patient on the CM role and verbal consent given by patient to complete assessment. CM verified patient's address, phone number, and emergency contact phone numbers. PT STATES PT WILL DC BACK TO [facility]. SHE IS CURRENTLY CONSIDERING GOING BACK WITH [facility] VS LTC BED. SHE WILL LETTING CM KNOW WHAT THEY WANT . CM WILL CONTINUE TO FOLLOW Information Director: Rosalinda Hammer DCPIA - Discharge Planning Initial Assessment Updated by [id number]: Rosalinda Hammer on 01/30/19 9:45 am * Is the patient Alert and Oriented? No * How many steps to enter\exit or inside your home? * PCP [facility] [address] * [facility] [place] * Preadmission Environment [employer]liance [employer] Counter Clerk Custodial * Facility Name [facility] * ADLs Partial Dependent * Verbal permission to speak to the caregivers and representatives has been obtained from the patient. N/A * Additional services required to return to the preadmission environment? No * Can the patient safely return to the preadmission environment? Yes * Has this patient been hospitalized within the prior 30 days at any hospital? No Coverage Notice Reviewer: [id number] - Rosalinda Hammer Notice Issued Date-Time: 01/30/2019 13:00 Notice Type: Patient Choice Letter Notice Delivered To: Family Member Relationship to Patient: Spouse Wood Mill Supervisor Name: Delivery Method: HAND - Hand Delivered Pau Days: Prior Verbal Notification: Recipient Understood Notice: Yes Recipient Signature: Yes Med Rec Note Co-signed by Attending: Coverage Notice Comment: Reviewer: [id number] - Jordan Saeed Notice Issued Date-Time: 01/31/2019 13:50 Notice Type: Patient Choice Letter Notice Delivered To: Family Member Relationship to Patient: Spouse Wood Mill Supervisor Name: SANTOS PERSAUD Delivery Method: HAND - Hand Delivered Pau Days: Prior Verbal Notification: Recipient Understood Notice: Yes Recipient Signature: Yes Med Rec Note Co-signed by Attending: Coverage Notice Comment: TASHI ELI Last DP export: 01/31/19 12:56 pm Patient Name: BOBBY PERSAUD Page 81291 at 1405 All edits/amendments must be made on the electronic document DICTATION DATE: 01/31/19 1404 EXPENDITURE REQUISITION CLERK: [place] 01/31/19 1404 RPT#: [id number] PR DATE: STATUS: ADM IN [facility] [address] [place] [address] END OF REPORT
[2019-01-31] MEDS ORDERED: CYCLOBENZAPRINE10 MG PO (14:50)
--- NOTE | 2019-01-31 15:25 | MORECARE ---
CASE MANAGEMENT DISCHARGE SUMMARY PATIENT: BOBBY PERSAUD UNIT: [id number] ADM DATE: 01/28/19 AGE: 83 : 36 SEX: M ROOM/BED: D.2106 AUTHOR: WOLF,DOC PHYSICIAN: REFERRING PHYSICIAN: SHIRLEY ESPINAL MD DATE OF SERVICE: 01/31/19 Discharge Plan Patient Name: BOBBY PERSAUD Facility: [facility]:[place] : 1935 Planned Disposition: Nursing Facility [facility] Cert Anticipated Discharge Date: 01/31/19 Discharge Date: Expected LOS: 3 Initial Reviewer: [id number] Initial Review Date: 01/30/2019 Generated: 01/31/19 4:25 pm Comments DCP- Discharge Planning Updated by [id number]: Jordan Saeed on 01/31/19 2:[address] Patient Name: BOBBY PERSAUD Encounter No: [id number] : 1935 Primary Insurance: MEDICARE A & B Anticipated DC Date: 01-31-2019 Planned Disposition: Nursing Facility [facility] Cert External Planned Provider: [facility], LONG TERM CARE MEDICAID BED DCP follow-up note: CM SPOKE TO PT'S IN ROOM; REPORTS PLAN FOR [facility] TO ADMIT PT AT THE [facility], [facility], WHERE PT HAS BEEN IN RESIDENTIAL CARE AND WILL RETURN THERE AT DISCHARGE. CHOICE LETTER SIGNED FOR [facility]. CM SPOKE TO GABI OF [facility], HOSPICE NURSE TO EVALUATE PT FOR INPATIENT REHAB AT 2PM TODAY TO SEE IF THERE HAVE BEEN ANY CHANGES; THEY ANTICIPATE PT RETURNING TO [facility] FOR HOSPICE ADMIT AT THE [facility]. CM CALLED [facility], , SPOKE TO [place] WHO HAS MET WITH PT'S SPOUSE THIS MORNING, THEY PLAN TO ACCEPT PT BACK FOR [employer] CARE AND ALL THEY NEED IS HOSPICE SELECTION AND PAPERWORK AT ADMISSION FROM HOSPICE. CM ADVISED PT IS MEETING WITH [facility] TODAY AT 2PM. [place] HAS RECEIVED UPDATE CM FAXED THIS MORNING. CM NOTIFIED MARIZOL ROSS. FOR DISCHARGE BACK TO [facility], FAX DISCHARGE INFORMATION TO [facility] AT [phone]; NURSE REPORT TO BE CALLED TO [facility] AT [phone]. PT TO TRANSPORT VIA AMBULANCE. Jordan Saeed, CASE MANAGEMENT Appended by Jordan Saeed on 01/31/2019 15:16 CDT: CM SPOKE TO SIN OF [facility], SHE HAS COMPLETED EVALUATION AND MET WITH PT'S SPOUSE, THEY WILL ADMIT PT TO HOSPICE AFTER PT ARRIVES BACK AT FACILITY TODAY. CM NOTIFIED MARIZOL CODY. CM RECEIVED DISCHARGE ORDER, CALLED [place] AT [facility], NOTIFIED OF DISCHARGE TODAY AND HOSPICE TO ADMIT UPON ARRIVAL AT FACILITY. CM FAXED DISCHARGE INFORMATION TO [facility] AT [phone]. NURSE REPORT TO BE CALLED TO [facility] AT [phone]. PT TO TRANSPORT VIA AMBULANCE. GONZALEZ Kaur MANAGEMENT DCP- Discharge Planning Updated by [id number]: Jordan Saeed on 01/31/19 7:[address] Patient Name: BOBBY PERSAUD Encounter No: [id number] : 1935 Primary Insurance: MEDICARE A & B Anticipated DC Date: Planned Disposition: Nursing Facility [facility] Cert External Planned Provider: [facility], LONG TERM CARE MEDICAID BED DCP follow-up note: CM FAXED HOSPITAL UPDATE TO [facility], . CM WAITING ON FAMILY DECISION REGARDING HOSPICE AT SHELTER; EITHER WAY, PT'S PLAN IS TO RETURN TO [facility] SAL[employer] [facility]SULTANT CARE WITH OR WITHOUT HOSPICE.. FOR DISCHARGE BACK TO [facility], FAX DISCHARGE INFORMATION TO [facility] AT [phone]; NURSE REPORT TO BE CALLED TO [facility] AT [phone]. TRANSPORT BACK TO FACILITY VIA AMBULANCE. GONZALEZ Kaur DCP- Discharge Planning Updated by [id number]: Rosalinda Hammer on 01/30/19 12:[address] Patient Name: BOBBY PERSAUD Admission Status: ER Accout number: [id number] Admission Date: 01-28-2019 : 1935 Admission Diagnosis: Attending: SHIRLEY ESPINAL Current LOS: 2 Anticipated DC Date: Planned Disposition: [facility] Facility w Plan Readm Primary Insurance: MEDICARE A & B Discharge Planning Comments: [facility] notified of evaluation. Gabi from [facility] is coming up to talk to . Hospital Scientist: Rosalinda Hammer DCP- Discharge Planning Updated by [id number]: Rosalinda Hammer on 01/30/19 8:[address] Patient Name: BOBBY PERSAUD Admission Status: ER Accout number: [id number] Admission Date: 01-28-2019 : 1935 Admission Diagnosis: Attending: SHIRLEY ESPINAL Current LOS: 2 Anticipated DC Date: Planned Disposition: [facility] Facility w Plan Readm Primary Insurance: MEDICARE A & B Discharge Planning Comments:CM met with patient to complete initial dc planning assessment. CM educated patient on the CM role and verbal consent given by patient to complete assessment. CM verified patient's address, phone number, and emergency contact phone numbers. PT STATES PT WILL DC BACK TO [facility]. SHE IS CURRENTLY CONSIDERING GOING BACK WITH [facility] VS LTC BED. SHE WILL LETTING CM KNOW WHAT THEY WANT . CM WILL CONTINUE TO FOLLOW Hospital Scientist: Rosalinda Hammer DCPIA - Discharge Planning Initial Assessment Updated by [id number]: Rosalinda Hammer on 01/30/19 9:45 am * Is the patient Alert and Oriented? No * How many steps to enter\exit or inside your home? * PCP [facility] * Pharmacy [facility] * Preadmission Environment Cruise Counselor [employer] * Facility Name [facility] * ADLs Partial Dependent * Verbal permission to speak to the caregivers and representatives has been obtained from the patient. N/A * Additional services required to return to the preadmission environment? No * Can the patient safely return to the preadmission environment? Yes * Has this patient been hospitalized within the prior 30 days at any hospital? No Coverage Notice Reviewer: [id number] - Rosalinda Hammer Notice Issued Date-Time: 01/30/2019 13:00 Notice Type: Patient Choice Letter Notice Delivered To: Family Member Relationship to Patient: Spouse Master Certified Rv Technician Name: Delivery Method: HAND - Hand Delivered Pau Days: Prior Verbal Notification: Recipient Understood Notice: Yes Recipient Signature: Yes Med Rec Note Co-signed by Attending: Coverage Notice Comment: Reviewer: [id number] - Jordan Saeed Notice Issued Date-Time: 01/31/2019 13:50 Notice Type: Patient Choice Letter Notice Delivered To: Family Member Relationship to Patient: Spouse Master Certified Rv Technician Name: SANTOS PERSAUD Delivery Method: HAND - Hand Delivered Pau Days: Prior Verbal Notification: Recipient Understood Notice: Yes Recipient Signature: Yes Med Rec Note Co-signed by Attending: Coverage Notice Comment: [facility] DP export: 01/31/19 1:05 pm Patient Name: BOBBY PERSAUD Page 91761 at 1525 All edits/amendments must be made on the electronic document DICTATION DATE: 01/31/191524 FISH AND WILDLIFE WARDEN: LOUIS 01/31/191524 RPT#: [id number] DC DATE: STATUS: ADM IN [facility] [address] [place] [address] END OF REPORT
--- NOTE | 2019-01-31 15:34 | MORECARE ---
CASE MANAGEMENT DISCHARGE SUMMARY PATIENT: BOBBY PERSAUD UNIT: [id number] ADM DATE: 01/28/19 AGE: 83 : 36 SEX: M ROOM/BED: D.2106 AUTHOR: WOLF,DOC PHYSICIAN: REFERRING PHYSICIAN: SHIRLEY ESPINAL MD DATE OF SERVICE: 01/31/19 Discharge Plan Patient Name: BOBBY PERSAUD Facility: [facility]:[place] : 1935 Planned Disposition: Nursing Facility JAMA Cert Anticipated Discharge Date: 01/31/19 Discharge Date: Expected LOS: 3 Initial Reviewer: [id number] Initial Review Date: 01/30/2019 Generated: 01/31/19 4:34 pm Comments DCP- Discharge Planning Updated by [id number]: Jordan Saeed on 01/31/19 2:[address] Patient Name: BOBBY PERSAUD Encounter No: [id number] : 1935 Primary Insurance: MEDICARE A & B Anticipated DC Date: 01-31-2019 Planned Disposition: Nursing Facility JAMA Cert External Planned Provider: [facility], LONG TERM CARE MEDICAID BED DCP follow-up note: CM SPOKE TO PT'S IN ROOM; REPORTS PLAN FOR [facility] TO ADMIT PT AT THE INTERMEDIATE, [facility], WHERE PT HAS BEEN IN NURSING HOME CARE AND WILL RETURN THERE AT DISCHARGE. CHOICE LETTER SIGNED FOR [facility]. CM SPOKE TO GABI OF [facility], HOSPICE NURSE TO EVALUATE PT FOR INPATIENT REHAB AT 2PM TODAY TO SEE IF THERE HAVE BEEN ANY CHANGES; THEY ANTICIPATE PT RETURNING TO [facility] FOR HOSPICE ADMIT AT THE INTERMEDIATE. CM CALLED [facility], , SPOKE TO [place] WHO HAS MET WITH PT'S SPOUSE THIS MORNING, THEY PLAN TO ACCEPT PT BACK FOR [facility] AND ALL THEY NEED IS HOSPICE SELECTION AND PAPERWORK AT ADMISSION FROM HOSPICE. CM ADVISED PT IS MEETING WITH [facility] TODAY AT 2PM. [place] HAS RECEIVED UPDATE CM FAXED THIS MORNING. CM NOTIFIED MARIZOL ROSS. FOR DISCHARGE BACK TO [facility], FAX DISCHARGE INFORMATION TO [facility] AT [phone]; NURSE REPORT TO BE CALLED TO [facility] AT [phone]. PT TO TRANSPORT VIA AMBULANCE. Jordan Saeed, CASE MANAGEMENT Appended by Jordan Saeed on 01/31/2019 15:16 CDT: CM SPOKE TO SIN OF [facility], SHE HAS COMPLETED EVALUATION AND MET WITH PT'S SPOUSE, THEY WILL ADMIT PT TO HOSPICE AFTER PT ARRIVES BACK AT FACILITY TODAY. CM NOTIFIED MARIZOL CODY. CM RECEIVED DISCHARGE ORDER, CALLED [place] AT [facility], NOTIFIED OF DISCHARGE TODAY AND HOSPICE TO ADMIT UPON ARRIVAL AT FACILITY. CM FAXED DISCHARGE INFORMATION TO [facility] AT [phone]. NURSE REPORT TO BE CALLED TO [facility] AT [phone]. PT TO TRANSPORT VIA AMBULANCE. GONZALEZ Kaur MANAGEMENT DCP- Discharge Planning Updated by [email or web address]: Jordan Saeed on 01/31/19 7:[address] Patient Name: BOBBY PERSAUD Encounter No: [id number] : 1935 Primary Insurance: MEDICARE A & B Anticipated DC Date: Planned Disposition: Nursing Facility JAMA Cert External Planned Provider: [facility], LONG TERM CARE MEDICAID BED DCP follow-up note: CM FAXED HOSPITAL UPDATE TO [facility], . CM WAITING ON FAMILY DECISION REGARDING HOSPICE AT INTERMEDIATE; EITHER WAY, PT'S PLAN IS TO RETURN TO [facility] WITH OR WITHOUT HOSPICE.. FOR DISCHARGE BACK TO [facility], FAX DISCHARGE INFORMATION TO [facility] AT [phone]; NURSE REPORT TO BE CALLED TO [facility] AT [phone]. TRANSPORT BACK TO FACILITY VIA AMBULANCE. GONZALEZ Kaur DCP- Discharge Planning Updated by [id number]: Rosalinda Hammer on 01/30/19 12:[address] Patient Name: BOBBY PERSAUD Admission Status: ER Accout number: [id number] Admission Date: 01-28-2019 : 1935 Admission Diagnosis: Attending: SHIRLEY ESPINAL Current LOS: 2 Anticipated DC Date: Planned Disposition: [facility] Facility w Plan Readm Primary Insurance: MEDICARE A & B Discharge Planning Comments: [facility] notified of evaluation. Gabi from [facility] is coming up to talk to . Final Rail Cutter: Rosalinda Hammer DCP- Discharge Planning Updated by [id number]: Rosalinda Hammer on 01/30/19 8:[address] Patient Name: BOBBY PERSAUD Admission Status: ER Accout number: [id number] Admission Date: 01-28-2019 : 1935 Admission Diagnosis: Attending: SHIRLEY ESPINAL Current LOS: 2 Anticipated DC Date: Planned Disposition: [facility] Facility w Plan Readm Primary Insurance: MEDICARE A & B Discharge Planning Comments:CM met with patient to complete initial dc planning assessment. CM educated patient on the CM role and verbal consent given by patient to complete assessment. CM verified patient's address, phone number, and emergency contact phone numbers. PT STATES PT WILL DC BACK TO [facility]. SHE IS CURRENTLY CONSIDERING GOING BACK WITH [facility] VS LTC BED. SHE WILL LETTING CM KNOW WHAT THEY WANT . CM WILL CONTINUE TO FOLLOW Final Rail Cutter: Rosalinda Hammer DCPIA - Discharge Planning Initial Assessment Updated by [id number]: Rosalinda Hammer on 01/30/19 9:45 am * Is the patient Alert and Oriented? No * How many steps to enter\exit or inside your home? * PCP [facility] * Pharmacy [facility] * Preadmission Environment Home Aide Residential * Facility Name [facility] * ADLs Partial Dependent * Verbal permission to speak to the caregivers and representatives has been obtained from the patient. N/A * Additional services required to return to the preadmission environment? No * Can the patient safely return to the preadmission environment? Yes * Has this patient been hospitalized within the prior 30 days at any hospital? No External Providers External Provider: [facility] Next Contact Date: 01/31/2019 Service Request Date: Service Type: Resolution: Reviewer: Comments: Coverage Notice Reviewer: [id number] - Rosalinda Hammer Notice Issued Date-Time: 01/30/2019 13:00 Notice Type: Patient Choice Letter Notice Delivered To: Family Member Relationship to Patient: Spouse Rn Allergy Name: Delivery Method: HAND - Hand Delivered Pau Days: Prior Verbal Notification: Recipient Understood Notice: Yes Recipient Signature: Yes Med Rec Note Co-signed by Attending: Coverage Notice Comment: Reviewer: [id number] - Jordan Saeed Notice Issued Date-Time: 01/31/2019 13:50 Notice Type: Patient Choice Letter Notice Delivered To: Family Member Relationship to Patient: Spouse Rn Allergy Name: SANTOS PERSAUD Delivery Method: HAND - Hand Delivered Pau Days: Prior Verbal Notification: Recipient Understood Notice: Yes Recipient Signature: Yes Med Rec Note Co-signed by Attending: Coverage Notice Comment: TSAHI ELI Last DP export: 01/31/19 2:25 pm Patient Name: BOBBY PERSAUD Page 18084 at 1534 All edits/amendments must be made on the electronic document DICTATION DATE: 01/31/19 153 CALENDER MACHINE OPERATOR HELPER: LOUIS 01/31/19 1534 RPT#: [id number] DC DATE: STATUS: ADM IN [facility] [address] [place] [address] END OF REPORT
[2019-01-31 16:08] VITALS: BP 140/73
--- NOTE | 2019-01-31 16:14 | MORECARE ---
CASE MANAGEMENT DISCHARGE SUMMARY PATIENT: BOBBY PERSAUD UNIT: [id number] ADM DATE: 01/28/19 AGE: 83 : 36 SEX: M ROOM/BED: D.2106 AUTHOR: WOLF,DOC PHYSICIAN: REFERRING PHYSICIAN: SHIRLEY ESPINAL MD DATE OF SERVICE: 01/31/19 Discharge Plan Patient Name: BOBBY PERSAUD Facility: [facility]:[place] : 1935 Planned Disposition: Nursing Facility JAMA Cert Anticipated Discharge Date: 01/31/19 Discharge Date: Expected LOS: 3 Initial Reviewer: [id number] Initial Review Date: 01/30/2019 Generated: 01/31/19 5:14 pm Comments DCP- Discharge Planning Updated by [id number]: Jordan Saeed on 01/31/19 2:[address] Patient Name: BOBBY PERSAUD Encounter No: [id number] : 1935 Primary Insurance: MEDICARE A & B Anticipated DC Date: 01-31-2019 Planned Disposition: Nursing Facility JAMA Cert External Planned Provider: [facility], LONG TERM CARE MEDICAID BED DCP follow-up note: CM SPOKE TO PT'S IN ROOM; REPORTS PLAN FOR [facility] TO ADMIT PT AT THE SNF, [facility], WHERE PT HAS BEEN IN SENIOR LIVING CARE AND WILL RETURN THERE AT DISCHARGE. CHOICE LETTER SIGNED FOR [facility]. CM SPOKE TO GABI OF [facility], HOSPICE NURSE TO EVALUATE PT FOR INPATIENT REHAB AT 2PM TODAY TO SEE IF THERE HAVE BEEN ANY CHANGES; THEY ANTICIPATE PT RETURNING TO [facility] FOR HOSPICE ADMIT AT THE SNF. 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 CM ADVISED PT IS MEETING WITH [facility] TODAY AT 2PM. [facility] HAS RECEIVED UPDATE CM FAXED THIS MORNING. CM NOTIFIED MARIZOL ROSS. FOR DISCHARGE BACK TO [facility], FAX DISCHARGE INFORMATION TO [facility] AT [phone]; NURSE REPORT TO BE CALLED TO [facility] AT [phone]. PT TO TRANSPORT VIA AMBULANCE. Jordan Saeed, CASE MANAGEMENT Appended by Jordan Saeed on 01/31/2019 15:16 CDT: CM SPOKE TO [facility] OF [facility], SHE HAS COMPLETED EVALUATION AND MET WITH PT'S SPOUSE, THEY WILL ADMIT PT TO HOSPICE AFTER PT ARRIVES BACK AT FACILITY TODAY. CM NOTIFIED MARIZOL CODY. CM RECEIVED DISCHARGE ORDER, CALLED A[place]ICA AT [facility], NOTIFIED OF DISCHARGE TODAY AND HOSPICE TO ADMIT UPON ARRIVAL AT FACILITY. CM FAXED DISCHARGE INFORMATION TO [facility] AT [phone]. NURSE REPORT TO BE CALLED TO [facility] AT [phone]. PT TO TRANSPORT VIA AMBULANCE. GONZALEZ Kaur MANAGEMENT DCP- Discharge Planning Updated by [id number]: Jordan Saeed on 01/31/19 7:[address] Patient Name: BOBBY PERSAUD Encounter No: [id number] : 1935 Primary Insurance: MEDICARE A & B Anticipated DC Date: Planned Disposition: Nursing Facility JAMA Cert External Planned Provider: [facility], LONG TERM CARE MEDICAID BED DCP follow-up note: CM FAXED HOSPITAL UPDATE TO [facility], . CM WAITING ON FAMILY DECISION REGARDING HOSPICE AT SNF; EITHER WAY, PT'S PLAN IS TO RETURN TO [facility] WITH OR WITHOUT HOSPICE.. FOR DISCHARGE BACK TO [facility], FAX DISCHARGE INFORMATION TO [facility] AT [phone]; NURSE REPORT TO BE CALLED TO [facility] AT [phone]. TRANSPORT BACK TO FACILITY VIA AMBULANCE. GONZALEZ Karu DCP- Discharge Planning Updated by [id number]: Rosalinda Hammer on 01/30/19 12:[address] Patient Name: BOBBY PERSAUD Admission Status: ER Accout number: [id number] Admission Date: 01-28-2019 : 1935 Admission Diagnosis: Attending: SHIRLEY ESPINAL Current LOS: 2 Anticipated DC Date: Planned Disposition: [facility] Facility w Plan Readm Primary Insurance: MEDICARE A & B Discharge Planning Comments: [facility] notified of evaluation. Gabi from [facility] is coming up to talk to . Manager Security: Rosalinda Hammer DCP- Discharge Planning Updated by [id number]: Rosalinda Hammer on 01/30/19 8:[address] Patient Name: BOBBY PERSAUD Admission Status: ER Accout number: [id number] Admission Date: 01-28-2019 : 1935 Admission Diagnosis: Attending: SHIRLEY ESPINAL Current LOS: 2 Anticipated DC Date: Planned Disposition: [facility] Facility w Plan Readm Primary Insurance: MEDICARE A & B Discharge Planning Comments:CM met with patient to complete initial dc planning assessment. CM educated patient on the CM role and verbal consent given by patient to complete assessment. CM verified patient's address, phone number, and emergency contact phone numbers. PT STATES PT WILL DC BACK TO [facility]. SHE IS CURRENTLY CONSIDERING GOING BACK WITH [facility] VS LTC BED. SHE WILL LETTING CM KNOW WHAT THEY WANT . CM WILL CONTINUE TO FOLLOW Manager Security: Rosalinda Hammer DCPIA - Discharge Planning Initial Assessment Updated by [id number]: Rosalinda Hammer on 01/30/19 9:45 am * Is the patient Alert and Oriented? No * How many steps to enter\exit or inside your home? * PCP [facility] * Pharmacy [facility] * Preadmission Environment Director Phone Longterm * Facility Name [facility] * ADLs Partial Dependent * Verbal permission to speak to the caregivers and representatives has been obtained from the patient. N/A * Additional services required to return to the preadmission environment? No * Can the patient safely return to the preadmission environment? Yes * Has this patient been hospitalized within the prior 30 days at any hospital? No Coverage Notice Reviewer: [id number] - Rosalinda Hammer Notice Issued Date-Time: 01/30/2019 13:00 Notice Type: Patient Choice Letter Notice Delivered To: Family Member Relationship to Patient: Spouse Direct Of Real Estate Name: Delivery Method: HAND - Hand Delivered Pau Days: Prior Verbal Notification: Recipient Understood Notice: Yes Recipient Signature: Yes Med Rec Note Co-signed by Attending: Coverage Notice Comment: Reviewer: [id number] - Jordan Saeed Notice Issued Date-Time: 01/31/2019 13:50 Notice Type: Patient Choice Letter Notice Delivered To: Family Member Relationship to Patient: Spouse Direct Of Real Estate Name: SANTOS PERSAUD Delivery Method: HAND - Hand Delivered Pau Days: Prior Verbal Notification: Recipient Understood Notice: Yes Recipient Signature: Yes Med Rec Note Co-signed by Attending: Coverage Notice Comment: [facility] DP export: 01/31/19 2:34 pm Patient Name: BOBBY PERSAUD Page 36476 at 1614 All edits/amendments must be made on the electronic document DICTATION DATE: 01/31/191613 HOUSE NURSE: LOUIS 01/31/191613 RPT#: [id number] DC DATE: STATUS: ADM IN [facility] [address] [place] [address] END OF REPORT
== END 2019-01-31 17:44 | disposition home health service (06) | DRG 682 ==
LOC: D.ER 20:27 → D.M2 22:28
PROVIDERS: Family Medicine; Internal Medicine Nephrology; ADMIT Emergency Medicine; ATTEND Emergency Medicine
DX: N17.9 Acute kidney failure, unspecified (principal); G93.41 Metabolic encephalopathy; R40.2343 Coma scale, best motor response, flexion withdrawal, at hospital admission; N39.0 Urinary tract infection, site not specified; I12.0 Hypertensive chronic kidney disease with stage 5 chronic kidney disease or end stage renal disease; N18.5 Chronic kidney disease, stage 5; I25.10 Atherosclerotic heart disease of native coronary artery without angina pectoris; E87.5 Hyperkalemia; D63.1 Anemia in chronic kidney disease; I95.9 Hypotension, unspecified; F03.90 Unspecified dementia, unspecified severity, without behavioral disturbance, psychotic disturbance, mood disturbance, and anxiety; N13.30 Unspecified hydronephrosis; R40.2243 Coma scale, best verbal response, confused conversation, at hospital admission; R40.2143 Coma scale, eyes open, spontaneous, at hospital admission